=== PATIENT | female | born 1985 | race Two or more races ===

== ENCOUNTER 2018-07-21 18:03 | Outpatient (CLI) | payer OTHER ==
[~2018-07-21] VITALS: Ht 162.6 cm; Wt 75.9 kg
[2018-07-21 18:20] VITALS: BP 105/65
== END 2018-07-21 18:55 | disposition home or self-care (01) ==
LOC: LDOP 18:03
PROVIDERS: ATTEND Obstetrics & Gynecology
DX: O42.912 Preterm premature rupture of membranes, unspecified as to length of time between rupture and onset of labor, second trimester (principal); Z3A.23 23 weeks gestation of pregnancy
CPT/HCPCS: 59025; 84112; 99211; G0463

== ENCOUNTER 2018-10-14 09:55 | Outpatient (CLI) | payer OTHER ==
[~2018-10-14] VITALS: Ht 162.6 cm; Wt 84.1 kg
[2018-10-14 10:07] VITALS: BP 106/67
[2018-10-14] MEDS ORDERED: PREN-3 PO (10:36)
[2018-10-14] MEDS ORDERED: METF10007 PO (10:38)
== END 2018-10-14 10:44 | disposition home or self-care (01) ==
LOC: LDOP 09:55
PROVIDERS: ATTEND Obstetrics & Gynecology
DX: O36.8130 Decreased fetal movements, third trimester, not applicable or unspecified (principal); Z3A.35 35 weeks gestation of pregnancy
CPT/HCPCS: 59025; 99211; G0463

== ENCOUNTER 2018-11-05 05:35 | Inpatient (IN) | payer OTHER ==
[~2018-11-05] VITALS: Ht 162.6 cm; Wt 83.0 kg
[~2018-11-05 05:35] MED LIST: METF10007 PO; PREN-3 PO
[2018-11-05] MEDS ORDERED: OXYTOCIN 30U/ 0.9% NaCL 500ML 500 ML ONE (05:42)
[2018-11-05] MEDS ORDERED: NEWBORN KIT ONE (05:42)
[2018-11-05 05:59] VITALS: BP 118/77
[2018-11-05] MEDS ORDERED: LACTATED RINGERS 1,000 ML IVBOLUS ONE (06:00)
[2018-11-05] MEDS ORDERED: SODIUM CITRATE/CITRIC ACID 15 ML UDC PO ONE (06:00)
[2018-11-05] MEDS ORDERED: METOCLOPRAMIDE 5 MG/ML, 2ML IV ONE (06:00)
[2018-11-05] MEDS ORDERED: METOCLOPRAMIDE 5 MG/ML, 2ML ONE (06:06)
[2018-11-05] MEDS ORDERED: SODIUM CITRATE/CITRIC ACID 15 ML UDC ONE (06:06)
[2018-11-05 06:20] LABS: BASOPHILS # (AUTO) 0.01 x10^3/uL (0-0.1); BASOPHILS % (AUTO) 0 % (0-1); EOSINOPHILS % (AUTO) 1 % (1-7); LYMPHOCYTES # (AUTO) 1.27 x10^3/uL (1-3.4); LYMPHOCYTES % (AUTO) 15 % (22-44); MD NO; MEAN CORPUSCULAR HEMOGLOBIN 27.9 pg (27.0-34.8); MEAN CORPUSCULAR HGB CONC 33.3 g/dL (32.4-35.8); MEAN CORPUSCULAR VOLUME 83.8 fL (80-100); MONOCYTES # (AUTO) 0.48 x10^3/uL (0.2-0.8); MONOCYTES % (AUTO) 6 % (2-9); NEUTROPHILS # (AUTO) 6.37 x10^3/uL (1.8-6.8); NEUTROPHILS % (AUTO) 77 % (42-75); PLATELET COUNT 201 x10^3/uL (130-400); RED BLOOD COUNT 4.56 x10^6/uL (3.82-5.3); RED CELL DISTRIBUTION WIDTH 14.2 % (9.6-15.2)
[2018-11-05] MEDS: LACTATED RINGERS 1,000 ML IV SCH ×4 (06:36→18:45)
[2018-11-05] MEDS ORDERED: MEPERIDINE/PF 25MG/0.5ML IVPush PRN (07:30)
[2018-11-05] MEDS ORDERED: ONDANSETRON ODT 8 MG PO PRN (07:30)
[2018-11-05] MEDS ORDERED: OXYcodone 5 MG/5 ML ORAL.SOL UDC PO PRN (07:30)
[2018-11-05] MEDS ORDERED: FENTANYL PF 100 MCG/2ML IV PRN (07:30)
[2018-11-05] MEDS ORDERED: MORPHINE SULFATE 4 MG/ML, 1ML IVPush PRN (07:30)
[2018-11-05] MEDS ORDERED: CEFAZOLIN 1,000 MG ONE (08:04)
[2018-11-05] MEDS ORDERED: KETOROLAC 30 MG/1 ML ONE (08:04)
[2018-11-05] MEDS ORDERED: OXYTOCIN 10 UNITS/ML, 1ML ONE (08:04)
[2018-11-05] MEDS ORDERED: EPHEDRINE 50 MG/ML, 1ML ONE (08:04)
[2018-11-05] MEDS ORDERED: EPINEPHRINE 1 MG/ML, 1ML ONE (08:04)
[2018-11-05] MEDS ORDERED: LACTATED RINGERS 1,000 ML IV SCH (08:45)
[2018-11-05] MEDS: OXYTOCIN 30U/ 0.9% NaCL 500ML 500 ML IV SCH ×2 (08:54→18:45)
[2018-11-05] MEDS ORDERED: MISOPROSTOL 200 MCG TABLET PR PRN (09:00)
[2018-11-05] MEDS ORDERED: KETOROLAC 30 MG/1 ML IV PRN (09:00)
[2018-11-05] MEDS ORDERED: morphine SULFATE 10 MG/ML, 1ML IVPush PRN (09:00)
[2018-11-05] MEDS: PRENATAL VIT/IRON/FA 1 EACH TABLET PO SCH (09:00)
[2018-11-05] MEDS ORDERED: MEPERIDINE/PF 50 MG/ML IVPush PRN (09:00)
[2018-11-05] MEDS ORDERED: ACETAMINOPHEN 325 MG TABLET PO PRN (09:00)
[2018-11-05] MEDS ORDERED: MEPERIDINE/PF 100 MG/ML IVPush PRN (09:00)
[2018-11-05] MEDS ORDERED: METHYLERGONOVINE 0.2 MG/ML IM PRN (09:00)
[2018-11-05] MEDS ORDERED: OXYcodone 5 MG/5 ML ORAL.SOL UDC ONE (10:04)
[2018-11-05 12:00] VITALS: BP 111/71
[2018-11-05] MEDS: OXYcodone/APAP 5/325MG TABLET PO PRN ×3 (13:38→22:35)
[2018-11-05] MEDS: KETOROLAC 30 MG/1 ML IV SCH ×2 (15:42→21:28)
[2018-11-05 16:16] LABS: BASOPHILS # (AUTO) 0.03 x10^3/uL (0-0.1); BASOPHILS % (AUTO) 0 % (0-1); EOSINOPHILS # (AUTO) 0.02 x10^3/uL (0-0.4); EOSINOPHILS % (AUTO) 0 % (1-7); LYMPHOCYTES % (AUTO) 8 % (22-44); MD NO; MEAN CORPUSCULAR HEMOGLOBIN 26.6 pg (27.0-34.8); MEAN CORPUSCULAR VOLUME 83.1 fL (80-100); MEAN PLATELET VOLUME 8.5 fL (7.4-10.4); MONOCYTES # (AUTO) 0.46 x10^3/uL (0.2-0.8); MONOCYTES % (AUTO) 5 % (2-9); NEUTROPHILS # (AUTO) 8.17 x10^3/uL (1.8-6.8); NEUTROPHILS % (AUTO) 87 % (42-75); PLATELET COUNT 184 x10^3/uL (130-400); RED BLOOD COUNT 3.86 x10^6/uL (3.82-5.3); RED CELL DISTRIBUTION WIDTH 14.2 % (9.6-15.2)
[2018-11-05 16:40] VITALS: BP 115/75
[2018-11-05 19:00] VITALS: BP 103/70
[2018-11-05] MEDS: DOCUSATE 100 MG CAPSULE PO PRN (21:28)
[2018-11-06] MEDS: OXYcodone/APAP 5/325MG TABLET PO PRN ×6 (02:25→22:19)
[2018-11-06] MEDS: KETOROLAC 30 MG/1 ML IV SCH ×4 (03:53→23:11)
[2018-11-06 04:00] VITALS: BP 111/71
[2018-11-06] MEDS: LACTATED RINGERS 1,000 ML IV SCH ×2 (04:45→14:45)
[2018-11-06] MEDS: OXYTOCIN 30U/ 0.9% NaCL 500ML 500 ML IV SCH ×2 (04:45→14:45)
[2018-11-06 07:30] VITALS: BP 103/66
[2018-11-06] MEDS: DOCUSATE 100 MG CAPSULE PO PRN ×2 (07:34→20:25)
[2018-11-06] MEDS: PRENATAL VIT/IRON/FA 1 EACH TABLET PO SCH (07:34)
[2018-11-06] MEDS ORDERED: DIPH,PERTUSS(ACELL),TET VAC/PF NC IM-VACC ONE ×3 (15:39→16:30)
[2018-11-06 19:00] VITALS: BP 99/68
[2018-11-07] MEDS: OXYTOCIN 30U/ 0.9% NaCL 500ML 500 ML IV SCH ×3 (00:45→20:45)
[2018-11-07] MEDS: LACTATED RINGERS 1,000 ML IV SCH ×3 (00:45→20:45)
[2018-11-07] MEDS: OXYcodone/APAP 5/325MG TABLET PO PRN ×6 (03:37→23:04)
[2018-11-07] MEDS: KETOROLAC 30 MG/1 ML IV SCH ×2 (05:15→11:30)
[2018-11-07] MEDS: PRENATAL VIT/IRON/FA 1 EACH TABLET PO SCH (08:37)
[2018-11-07] MEDS: DOCUSATE 100 MG CAPSULE PO PRN ×2 (08:37→18:57)
[2018-11-07 09:05] VITALS: BP 107/72
[2018-11-07] MEDS: IBUPROFEN 600 MG TABLET PO PRN ×2 (11:55→17:57)
[2018-11-07 20:00] VITALS: BP 114/78
[2018-11-08] MEDS: IBUPROFEN 600 MG TABLET PO PRN ×3 (00:54→14:12)
[2018-11-08] MEDS: OXYcodone/APAP 5/325MG TABLET PO PRN ×4 (03:49→16:29)
[2018-11-08] MEDS: LACTATED RINGERS 1,000 ML IV SCH (06:45)
[2018-11-08] MEDS: OXYTOCIN 30U/ 0.9% NaCL 500ML 500 ML IV SCH (06:45)
[2018-11-08] MEDS: PRENATAL VIT/IRON/FA 1 EACH TABLET PO SCH (07:55)
[2018-11-08] MEDS: DOCUSATE 100 MG CAPSULE PO PRN (07:55)
[2018-11-08 10:39] VITALS: BP 112/71
[2018-11-08] MEDS ORDERED: IBUP-1222 PO (16:09)
[2018-11-08] MEDS ORDERED: OXYC-302 PO (16:09)
== END 2018-11-08 16:45 | disposition home or self-care (01) | DRG 785 ==
LOC: LDIP 05:35 → 2NW 10:37
PROVIDERS: ADMIT Obstetrics & Gynecology; ATTEND Obstetrics & Gynecology
PROC: 10D00Z1 Extraction of Products of Conception, Low, Open Approach (ICD-10-PCS; principal; 2018-11-05)
PROC: 0UB70ZZ Excision of Bilateral Fallopian Tubes, Open Approach (ICD-10-PCS; 2018-11-05)
DX: O34.211 Maternal care for low transverse scar from previous cesarean delivery (principal); O69.81X0 Labor and delivery complicated by cord around neck, without compression, not applicable or unspecified; O99.284 Endocrine, nutritional and metabolic diseases complicating childbirth; E28.2 Polycystic ovarian syndrome; Z3A.39 39 weeks gestation of pregnancy; Z37.0 Single live birth; Z30.2 Encounter for sterilization; G89.18 Other acute postprocedural pain
CPT/HCPCS: 36415; 82803; 85025; 86850; 86900; 88302; 90715; G0378; J0171; J0690; J1885; J2590; J2765; J7120